=== PATIENT | male | born 1975 | race Two or more races ===

== ENCOUNTER 2019-10-01 21:03 | Emergency (ER) | payer MEDICAID ==
[~2019-10-01] VITALS: Ht 177.8 cm; Wt 95.3 kg
[2019-10-01] MEDS ORDERED: KETOROLAC TROMETH 60MG/2ML VIAL IM ONE (21:30)
[2019-10-01 23:24] VITALS: BP 139/76
== END 2019-10-01 23:28 | disposition home or self-care (01) ==
LOC: EDBD 21:03 → ER 21:20
DX: M79.89 Other specified soft tissue disorders (principal); V29.9XXA Motorcycle rider (driver) (passenger) injured in unspecified traffic accident, initial encounter; Y93.89 Activity, other specified; Y92.89 Other specified places as the place of occurrence of the external cause; Y99.8 Other external cause status
CPT/HCPCS: 73090; 73110; 73130; 96372; 99284; J1885